=== PATIENT | male | born 1985 | race Caucasian/White ===

== ENCOUNTER 2016-07-30 21:43 | Emergency (ER) | payer SELFPAY ==
[~2016-07-30 21:43] MED LIST: BACTRIM DS TABL1 TA1 PO; DICLOFENAC PO; FLEXERIL10 MG PO; KEFLEX500 M1 PO; LORTAB 7.5-3251 EACH PO; NO MEDICATIONS; VIBRAMYCIN100 M1 PO
== END 2016-07-30 22:22 | disposition home or self-care (01) ==
LOC: SED 21:43
DX: N34.2 Other urethritis (principal); I10 Essential (primary) hypertension
CPT/HCPCS: 96372; 99283; J0696